=== PATIENT | male | born 1970 | race Caucasian/White ===

== ENCOUNTER → 2016-12-24 | Outpatient (CLI) | payer OTHER | END | disposition home or self-care (01) | LOC: CFH 13:57 | PROVIDERS: ATTEND Nurse Practitioner | DX: M79.604 Pain in right leg (principal) ==

== ENCOUNTER 2017-07-14 20:44 | Emergency (ER) | payer OTHER ==
[~2017-07-14] VITALS: Ht 182.9 cm; Wt 95.0 kg
[2017-07-14] MEDS ORDERED: METH4TAB7 PO (20:58)
[2017-07-14] MEDS ORDERED: METH4TAB6 PO (20:58)
[2017-07-14] MEDS ORDERED: ALBU0.63 NEB (20:58)
[2017-07-14] MEDS ORDERED: UNKNOWN ANTIBIOTIC (20:59)
[2017-07-14] MEDS ORDERED: FAMOTIDINE 20 MG/2 ML IVP ONE (21:30)
[2017-07-14] MEDS ORDERED: SODIUM CHLORIDE 0.9% 1,000ML IVBOLUS ONE (21:30)
[2017-07-14] MEDS ORDERED: SODIUM CHLORIDE FLUSH 10ML SYR IVF ONE (21:30)
[2017-07-14] MEDS ORDERED: ONDANSETRON 2MG/ML, 2ML IVPush ONE (21:30)
[2017-07-14] MEDS ORDERED: ONDANSETRON 2MG/ML, 2ML ONE (21:37)
[2017-07-14] MEDS ORDERED: FAMOTIDINE 20 MG/2 ML ONE (21:37)
[2017-07-14 21:53] LABS: BASOPHILS # (AUTO) 0.04 x10^3/uL (0-0.1); BASOPHILS % (AUTO) 1 % (0-1); EOSINOPHILS # (AUTO) 0.15 x10^3/uL (0-0.4); EOSINOPHILS % (AUTO) 3 % (1-7); LYMPHOCYTES # (AUTO) 0.96 x10^3/uL (1-3.4); LYMPHOCYTES % (AUTO) 19 % (22-44); MD NO; MEAN CORPUSCULAR HEMOGLOBIN 32.3 pg (27.5-34.5); MEAN CORPUSCULAR HGB CONC 34.6 g/dL (33.2-36.2); MEAN CORPUSCULAR VOLUME 93.5 fL (81-97); MONOCYTES # (AUTO) 0.38 x10^3/uL (0.2-0.8); MONOCYTES % (AUTO) 7 % (2-9); NEUTROPHILS # (AUTO) 3.64 x10^3/uL (1.8-6.8); NEUTROPHILS % (AUTO) 70 % (42-75); PLATELET COUNT 278 x10^3/uL (130-400); RED BLOOD COUNT 4.96 x10^6/uL (4.38-5.82); RED CELL DISTRIBUTION WIDTH 12.8 % (9.4-14.8)
[2017-07-14 22:00] LABS: ALBUMIN 3.6 g/dL (3.4-5.0); ANION GAP 7 mmol/L (5-15); CALCIUM 8.4 mg/dL (8.5-10.1); CHLORIDE 107 mmol/L (98-107)
[2017-07-14 22:04] LABS: ALANINE AMINOTRANSFERASE 46 U/L (12-78); ALKALINE PHOSPHATASE 86 U/L (45-117); BILIRUBIN,TOTAL 0.5 mg/dL (0.2-1.0); CREATININE 1.05 mg/dL (0.7-1.3); TOTAL PROTEIN 7.4 g/dL (6.4-8.2)
[2017-07-14 23:14] VITALS: BP 120/85
== END 2017-07-14 23:17 | disposition home or self-care (01) ==
LOC: ED 22:55
DX: J01.01 Acute recurrent maxillary sinusitis (principal); R19.7 Diarrhea, unspecified; R11.2 Nausea with vomiting, unspecified
CPT/HCPCS: 36415; 70450; 80053; 83690; 85025; 93005; 96361; 96374; 96375; 99285; J2405; J7030; S0028

== ENCOUNTER 2017-12-03 13:19 | Inpatient (IN) | payer OTHER ==
[~2017-12-03] VITALS: Ht 182.9 cm; Wt 92.0 kg
[~2017-12-03 13:19] MED LIST: ALBU0.63 NEB; METH4TAB6 PO; METH4TAB7 PO; UNKNOWN ANTIBIOTIC
[2017-12-03] MEDS ORDERED: SODIUM CHLORIDE 0.9% 1,000 ML IV ONE ×3 (13:32→15:39)
[2017-12-03] MEDS ORDERED: ONDANSETRON ODT 4 MG ONE (13:40)
[2017-12-03 13:54] LABS: BASOPHILS # (AUTO) 0.04 x10^3/uL (0-0.1); BASOPHILS % (AUTO) 0 % (0-1); EOSINOPHILS # (AUTO) 0.07 x10^3/uL (0-0.4); EOSINOPHILS % (AUTO) 1 % (1-7); LYMPHOCYTES # (AUTO) 1.08 x10^3/uL (1-3.4); LYMPHOCYTES % (AUTO) 12 % (22-44); MD NO; MEAN CORPUSCULAR HGB CONC 34.3 g/dL (33.2-36.2); MEAN CORPUSCULAR VOLUME 93.4 fL (81-97); MEAN PLATELET VOLUME 8.3 fL (7.4-10.4); MONOCYTES # (AUTO) 0.74 x10^3/uL (0.2-0.8); MONOCYTES % (AUTO) 8 % (2-9); NEUTROPHILS # (AUTO) 6.96 x10^3/uL (1.8-6.8); NEUTROPHILS % (AUTO) 78 % (42-75); PLATELET COUNT 306 x10^3/uL (130-400); RED BLOOD COUNT 4.96 x10^6/uL (4.38-5.82); RED CELL DISTRIBUTION WIDTH 12.8 % (9.4-14.8)
[2017-12-03] MEDS ORDERED: ONDANSETRON ODT 4 MG PO ONE (14:00)
[2017-12-03] MEDS ORDERED: SODIUM CHLORIDE FLUSH 10ML SYR IVF ONE (14:00)
[2017-12-03] MEDS ORDERED: SODIUM CHLORIDE 0.9% 1,000ML IVBOLUS ONE (14:00)
[2017-12-03 14:05] LABS: ALANINE AMINOTRANSFERASE 38 U/L (12-78); ALBUMIN 3.8 g/dL (3.4-5.0); ANION GAP 8 mmol/L (5-15); CALCIUM 9.4 mg/dL (8.5-10.1); CHLORIDE 103 mmol/L (98-107)
[2017-12-03 14:07] LABS: ALKALINE PHOSPHATASE 95 U/L (45-117); BILIRUBIN,TOTAL 0.8 mg/dL (0.2-1.0); CREATININE 1.28 mg/dL (0.7-1.3); TOTAL PROTEIN 8.1 g/dL (6.4-8.2)
[2017-12-03] MEDS ORDERED: IBPROFEN (14:38)
[2017-12-03] MEDS ORDERED: CETI1TAB6 PO (14:38)
[2017-12-03] MEDS ORDERED: PEPTO-BISMOL (14:38)
[2017-12-03] MEDS ORDERED: OMNIPAQUE 350 MG/ML, 100ML BOTTLE ONE (14:48)
[2017-12-03 14:56] LABS: MICROSCOPIC NOT IND
[2017-12-03 15:05] LABS: CULTURE INDICATED? NO
[2017-12-03] MEDS ORDERED: FENTANYL PF 100 MCG/2ML IVPush ONE (15:30)
[2017-12-03] MEDS ORDERED: METRONIDAZOLE PMX 500MG/100ML 100 ML ONE (15:47)
[2017-12-03] MEDS ORDERED: CIPROFLOXACIN/PMX 400MG/200ML 200 ML ONE (15:48)
[2017-12-03] MEDS ORDERED: FENTANYL PF 100 MCG/2ML ONE (15:48)
[2017-12-03] MEDS ORDERED: CIPROFLOXACIN/PMX 400MG/200ML 200 ML IV ONE (16:00)
[2017-12-03] MEDS ORDERED: SODIUM CHLORIDE FLUSH 10ML SYR IVF PRN (16:00)
[2017-12-03] MEDS ORDERED: METRONIDAZOLE PMX 500MG/100ML 100 ML IV ONE (16:00)
[2017-12-03] MEDS: SODIUM CHLORIDE 0.9% 1,000 ML IV SCH ×2 (16:21→18:25)
[2017-12-03] MEDS ORDERED: morphine SULFATE 10 MG/ML, 1ML IVPush PRN (16:30)
[2017-12-03] MEDS ORDERED: ONDANSETRON ODT 4 MG PO PRN (16:30)
[2017-12-03] MEDS ORDERED: ONDANSETRON 2MG/ML, 2ML IVPush PRN (16:30)
[2017-12-03] MEDS ORDERED: hydrALAzine 20 MG/ML, 1ML IVPush PRN (16:30)
[2017-12-03] MEDS ORDERED: HYDROcodone/APAP 5/325 TABLET PO PRN (16:30)
[2017-12-03] MEDS ORDERED: FENTANYL PF 100 MCG/2ML IVPush PRN (17:00)
[2017-12-03] MEDS ORDERED: FENTANYL 12 MCG PATCH TD SCH (17:00)
[2017-12-03] MEDS: CEFTRIAXONE PMX 2GM/50ML 50 ML IV SCH (17:00)
[2017-12-03 17:53] LABS: AMPHETAMINE SCREEN, URINE Negative (Negative); BARBITURATE SCREEN, URINE Negative (Negative); BENZODIAZEPINE SCREEN, URINE Positive (Negative); COCAINE SCREEN, URINE Negative (Negative); METHADONE SCREEN, URINE Negative (Negative); OPIATE SCREEN, URINE Negative (Negative)
[2017-12-03 17:54] LABS: CANNABINOID SCREEN, URINE Negative (Negative)
[2017-12-03 19:42] VITALS: BP 123/75
[2017-12-03] MEDS: PANTOPRAZOLE 40 MG IV IVPush SCH (20:52)
[2017-12-03] MEDS: TEMAZEPAM 15 MG CAPSULE PO PRN (20:53)
[2017-12-04] MEDS: METRONIDAZOLE PMX 500MG/100ML 100 ML IV SCH ×3 (00:07→16:44)
[2017-12-04] MEDS: SODIUM CHLORIDE 0.9% 1,000 ML IV SCH ×4 (00:07→21:14)
[2017-12-04 01:06] VITALS: BP 122/72
[2017-12-04 06:05] LABS: BASOPHILS # (AUTO) 0.03 x10^3/uL (0-0.1); BASOPHILS % (AUTO) 1 % (0-1); EOSINOPHILS # (AUTO) 0.24 x10^3/uL (0-0.4); EOSINOPHILS % (AUTO) 3 % (1-7); LYMPHOCYTES # (AUTO) 1.25 x10^3/uL (1-3.4); LYMPHOCYTES % (AUTO) 18 % (22-44); MD NO; MEAN CORPUSCULAR VOLUME 94.1 fL (81-97); MEAN PLATELET VOLUME 8.5 fL (7.4-10.4); MONOCYTES # (AUTO) 0.68 x10^3/uL (0.2-0.8); MONOCYTES % (AUTO) 10 % (2-9); NEUTROPHILS # (AUTO) 4.87 x10^3/uL (1.8-6.8); NEUTROPHILS % (AUTO) 69 % (42-75); PLATELET COUNT 256 x10^3/uL (130-400); RED BLOOD COUNT 4.53 x10^6/uL (4.38-5.82); RED CELL DISTRIBUTION WIDTH 12.8 % (9.4-14.8)
[2017-12-04 06:10] LABS: ALANINE AMINOTRANSFERASE 30 U/L (12-78); ALBUMIN 3.3 g/dL (3.4-5.0); ANION GAP 8 mmol/L (5-15); CALCIUM 8.5 mg/dL (8.5-10.1); CHLORIDE 104 mmol/L (98-107); CREATININE 1.17 mg/dL (0.7-1.3)
[2017-12-04 06:12] LABS: ALKALINE PHOSPHATASE 82 U/L (45-117); BILIRUBIN,TOTAL 0.9 mg/dL (0.2-1.0); TOTAL PROTEIN 7.2 g/dL (6.4-8.2)
[2017-12-04 06:48] VITALS: BP 115/67
[2017-12-04] MEDS: PANTOPRAZOLE 40 MG IV IVPush SCH ×2 (07:50→21:14)
[2017-12-04] MEDS: ACETAMINOPHEN 325 MG TABLET PO PRN ×2 (07:54→11:47)
[2017-12-04 12:26] VITALS: BP 125/71
[2017-12-04] MEDS: CEFTRIAXONE PMX 2GM/50ML 50 ML IV SCH (18:17)
[2017-12-04 19:11] VITALS: BP 132/79
[2017-12-04] MEDS: TEMAZEPAM 15 MG CAPSULE PO PRN (21:14)
[2017-12-05] MEDS: METRONIDAZOLE PMX 500MG/100ML 100 ML IV SCH ×3 (00:16→15:44)
[2017-12-05 03:02] VITALS: BP 118/69
[2017-12-05 07:31] VITALS: BP 120/74
[2017-12-05] MEDS: SODIUM CHLORIDE 0.9% 1,000 ML IV SCH ×3 (07:50→21:13)
[2017-12-05] MEDS: PANTOPRAZOLE 40 MG IV IVPush SCH ×2 (07:51→21:10)
[2017-12-05] MEDS ORDERED: LORazepam 2 MG/ML, 1ML IVPush PRN (08:30)
[2017-12-05] MEDS ORDERED: HALOPERIDOL 5 MG/ML IM PRN (08:30)
[2017-12-05 15:18] VITALS: BP 117/72
[2017-12-05] MEDS: CEFTRIAXONE PMX 2GM/50ML 50 ML IV SCH (17:03)
[2017-12-05 18:44] VITALS: BP 101/75
[2017-12-05] MEDS: TEMAZEPAM 15 MG CAPSULE PO PRN (21:10)
[2017-12-06] MEDS: METRONIDAZOLE PMX 500MG/100ML 100 ML IV SCH ×2 (00:07→09:23)
[2017-12-06 02:41] VITALS: BP 113/71
[2017-12-06 07:13] VITALS: BP 121/84
[2017-12-06] MEDS: SODIUM CHLORIDE 0.9% 1,000 ML IV SCH (09:22)
[2017-12-06] MEDS: PANTOPRAZOLE 40 MG IV IVPush SCH (09:23)
[2017-12-06] MEDS ORDERED: METR500T PO (10:22)
[2017-12-06] MEDS ORDERED: CEFD300C37 PO (10:22)
[2017-12-06] MEDS ORDERED: ONDA4TAB13 PO (10:22)
[2017-12-06] MEDS ORDERED: OMEP-110 PO (10:22)
[2017-12-06] MEDS ORDERED: ACET325T14 PO (10:22)
[2017-12-06] MEDS ORDERED: FENTANYL REMOVE PATCH NOTE XX SCH (18:00)
== END 2017-12-06 11:20 | disposition home or self-care (01) | DRG 392 ==
LOC: ED 15:25 → EDIP 15:39 → 3NE 17:40 → DCLOUNGE 12-06 11:11
PROVIDERS: ADMIT Hospitalist; ATTEND Internal Medicine
DX: K57.20 Diverticulitis of large intestine with perforation and abscess without bleeding (principal); F15.90 Other stimulant use, unspecified, uncomplicated; Z88.6 Allergy status to analgesic agent; Z88.8 Allergy status to other drugs, medicaments and biological substances; Z80.42 Family history of malignant neoplasm of prostate
CPT/HCPCS: 36415; 74177; 80053; 80307; 81003; 83605; 83735; 84100; 84145; 85025; 87040; 93005; 96374; J0696; J0744; J3010; Q0162; Q9967; C9113; J2060; J7030

== ENCOUNTER 2019-11-18 01:09 | Emergency (ER) | payer OTHER ==
[~2019-11-18] VITALS: Ht 182.9 cm; Wt 113.6 kg
[~2019-11-18 01:09] MED LIST changes: +ACET325T14 PO; +CEFD300C37 PO; +CETI1TAB6 PO; +IBPROFEN; +METR500T PO; +OMEP-110 PO; +ONDA4TAB13 PO; +PEPTO-BISMOL
--- NOTE | 2019-11-18 01:28 | NUR ---
PT PRESENTS TO ER VIA [facility] S/T N/V. EMS WAS CALLED AFTER WOKE TO PT VOMITING COPIOUS AMOUNTS. PER EMS, EMESIS WAS BLOOD TINGED. PER EMS, WHILE TRANSFER PT TO AMBULANCE, HE BECAME COMBATIVE. PT WAS MEDICATED WITH 300 MG KETAMINE IM. 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 PT PRESENTS LETHARGIC AND ONLY RESPONSIVE TO PAINFUL STIMILUS. PT DOES OPEN EYES WITH BLANK GAZE NOTED. UNABLE TO COMPLETE FULL NEURO EXAM S/T PT STATUS POST MEDS. FSBS 123. PT ON ALL MONITORS AND HOB ELEVATED, SIDE RAILS UP. ERP IN TO EVAL PT.
[2019-11-18 01:42] LABS: BASOPHILS # (AUTO) 0.02 x10^3/uL (0-0.1); BASOPHILS % (AUTO) 0 % (0-1); EOSINOPHILS # (AUTO) 0.02 x10^3/uL (0-0.4); EOSINOPHILS % (AUTO) 0 % (1-7); LYMPHOCYTES # (AUTO) 0.73 x10^3/uL (1-3.4); LYMPHOCYTES % (AUTO) 13 % (22-44); MD NO; MEAN CORPUSCULAR HEMOGLOBIN 32.4 pg (27.5-34.5); MEAN CORPUSCULAR HGB CONC 33.8 g/dL (33.2-36.2); MEAN PLATELET VOLUME 7.4 fL (7.4-10.4); MONOCYTES # (AUTO) 0.18 x10^3/uL (0.2-0.8); MONOCYTES % (AUTO) 3 % (2-9); NEUTROPHILS # (AUTO) 4.61 x10^3/uL (1.8-6.8); NEUTROPHILS % (AUTO) 83 % (42-75); PLATELET COUNT 281 x10^3/uL (130-400); RED BLOOD COUNT 5.07 x10^6/uL (4.38-5.82); RED CELL DISTRIBUTION WIDTH 12.7 % (9.4-14.8)
--- NOTE | 2019-11-18 01:50 | NUR ---
CALL RECEIVED FROM PT'S , TEJA. PER , PT WAS DRINKING ALL NIGHT. SHE FOUND HIM SITTING ON KITCHEN FLOOR AROUND 9PM. HE WAS TALKING TO HIMSELF AND REFUSING TO COME TO BED. PT WAS "PASSED OUT" ON COUCH AROUND 2300. STATES SHE WOKE TO PT YELLING AND VOMITING AROUND 2345. DURING HIS VOMITING, STATES PT FELL AND HIT HIS HEAD ON THE SIDE TABLE AT BEDSIDE. DENIES LOC. STATES PT WAS JUST SHOUTING "IT LARA". 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 AWAITING CT.
[2019-11-18 02:04] LABS: ALANINE AMINOTRANSFERASE 50 U/L (12-78); ALBUMIN 3.9 g/dL (3.4-5.0); ANION GAP 7 mmol/L (5-15); CALCIUM 8.2 mg/dL (8.5-10.1); CHLORIDE 110 mmol/L (98-107)
[2019-11-18 02:06] LABS: ALKALINE PHOSPHATASE 86 U/L (45-117); BILIRUBIN,TOTAL 0.4 mg/dL (0.2-1.0); CREATININE 1.02 mg/dL (0.7-1.3); SALICYLATE LEVEL < 1.7 mg/dL (2.8-20.0); TOTAL PROTEIN 8.2 g/dL (6.4-8.2)
--- NOTE | 2019-11-18 02:09 | NUR ---
PT TO CT WITH RN ESCORT. PT REMAINS VERY SEDATED. DOES OPEN EYES TO VERBAL. DOES NOT FOLLOW FURTHER COMMANDS. DOES NOT ANSWER QUESTIONS. PT ATTEMPTING TO CLEAR OWN SECRETIONS--SUCTION PROVIDED WITH IMPROVEMENT NOTED.
[2019-11-18 02:11] VITALS: BP 112/79
--- NOTE | 2019-11-18 02:33 | NUR ---
BEDSIDE REPORT FROM ROMA KIM
--- NOTE | 2019-11-18 03:35 | NUR ---
PT RESTING ON GURNEY WITH EYES CLOSED, RESPIRATIONS EVEN AND UNLABORED. VSS.
== END 2019-11-18 06:29 | disposition home or self-care (01) ==
LOC: ED 05:29
DX: F10.120 Alcohol abuse with intoxication, uncomplicated (principal); Z87.891 Personal history of nicotine dependence; Y90.9 Presence of alcohol in blood, level not specified
CPT/HCPCS: 70450; 80053; 80307; 82962; 85025; 99284